=== PATIENT | female | born 1965 | race Caucasian/White ===

== ENCOUNTER 2021-03-05 05:27 | Emergency (ER) | payer OTHER ==
[2021-03-05 05:38] VITALS: RESP 18
--- NOTE | 2021-03-05 06:48 | XR ---
EXAM: XR Chest, 2 Views CLINICAL HISTORY: ITS.REASON XR Reason: COUGH TECHNIQUE: Frontal and lateral views of the chest. COMPARISON: No relevant prior studies available. FINDINGS: Lungs: Patchy peripheral bilateral lung opacities most prominent in the bilateral bases. Pleural space: Unremarkable. No pneumothorax. Heart: Unremarkable. No cardiomegaly. Mediastinum: Unremarkable. Bones/joints: Unremarkable. IMPRESSION: Patchy peripheral bilateral lung opacities consistent with multifocal infection. Correlate with COVID serologies.
[2021-03-05] MEDS ORDERED: ACETAMINOPHEN TAB 325 MG TAB PO STA (07:15)
[2021-03-05] MEDS ORDERED: IBUPROFEN 600 MG TAB PO STA (07:15)
[2021-03-05] MEDS ORDERED: ALBUTEROL HFA INHALER INHALATION STA (07:15)
[2021-03-05] MEDS ORDERED: DEXAMETHASONE SOD PHOSPHATE 10 MG/ML 1 ML VIAL IVP STA (07:15)
[2021-03-05] MEDS ORDERED: SODIUM CHLORIDE 0.9% 50 ML IVPB ONE (08:00)
[2021-03-05] MEDS ORDERED: CASIRIVIMAB (REGN10933) (EUA) 600 MG, IMDEVIMAB (REGN10987) (EUA) 600 MG in SODIUM CHLO... IVPB ONE (08:15)
--- NOTE | 2021-03-05 08:38 | ED ---
General Adult HPI - General Chief complaint: Weakness Stated complaint: SOB Time Seen by Provider: 03/05/21 07:15 Source: patient, RN notes reviewed Mode of arrival: ambulatory - History of Present Illness Initial comments: Patient is a 55-year-old female that presents to the emergency department complaining of generalized weakness for the past several days. She notes that she can emergency room to get evaluated.She notes that her daughter tested positive for Covid on Tuesday. Patient otherwise denied any issues or complaints. She was otherwise well-appearing. She denied chest pain headache nausea vomiting constipation fatigue chills. - Related Data Home Medications Medication Instructions Recorded Confirmed Acetaminophen Tab [Tylenol Tab] 1,000 mg PO Q6HR PRN 03/05/21 03/05/21 Allergies Allergy/AdvReac Type Severity Reaction Status Date / Time No Known Allergies Allergy Verified 03/05/21 08:16 Review of Systems ROS Statement: Those systems with pertinent positive or pertinent negative responses have been documented in the HPI. ROS Other: All systems not noted in ROS Statement are negative. Past Medical History Past Medical History: No Reported History History of Any Multi-Drug Resistant Organisms: None Reported Past Surgical History: Ablation Additional Past Surgical History / Comment(s): Left knee surgery 12 years ago Past Psychological History: No Psychological Hx Reported Smoking Status: Former smoker Past Alcohol Use History: Occasional Past Drug Use History: None Reported General Exam General appearance: alert, in no apparent distress Head exam: Present: atraumatic, normocephalic, normal inspection Eye exam: Present: normal appearance, PERRL, EOMI. Absent: scleral icterus, conjunctival injection, periorbital swelling ENT exam: Present: normal exam, mucous membranes moist Neck exam: Present: normal inspection Respiratory exam: Present: normal lung sounds bilaterally. Absent: respiratory distress, wheezes, rales, rhonchi, stridor Cardiovascular Exam: Present: regular rate, normal rhythm, normal heart sounds. Absent: systolic murmur, diastolic murmur, rubs, gallop, clicks Extremities exam: Present: normal inspection, full ROM, normal capillary refill. Absent: tenderness, pedal edema, joint swelling, calf tenderness Neurological exam: Present: alert, oriented X3 Psychiatric exam: Present: normal affect, normal mood Skin exam: Present: warm, dry, intact, normal color. Absent: rash Course Vital Signs 03/05/21 03/05/21 05:29 07:22 Temperature 99.7 F H Pulse Rate 79 Respiratory 18 Rate Blood Pressure 102/69 O2 Sat by Pulse 90 L 94 L Oximetry Medical Decision Making - Medical Decision Making 55-year-old female here for Covid testing due to symptoms for the past several days. Covid test ordered. Covid test positive. Chest x-ray shows peribronchial thickening consistent with Covid. 600 mg of Motrin, 650 mg Tylenol, 10 mg of Decadron, albuterol inhaler ordered. Patient does meet criteria for monoclonal antibodies. Patient is agreeable discharge home after. Patient oxygen saturation upon ambulation was 94%. Case discussed with Dr. Mariee, patient discharge home. - Lab Data Lab Results 03/05/21 Range/Units 05:40 Coronavirus (PCR) Detected A (Not Detectd) - Radiology Data Radiology results: report reviewed, image reviewed Chest x-ray: Patchy peripheral bilateral lung opacities consistent with multifocal infection. Correlate with Covid's serologies. Disposition Clinical Impression: COVID Disposition: HOME SELF-CARE Condition: Stable Instructions (If sedation given, give patient instructions): Coronavirus Disease 2019 (COVID-19) Additional Instructions: Please return to the Emergency Department if symptoms worsen or any other concerns. Is patient prescribed a controlled substance at d/c from ED?: No Referrals: None,Stated [Primary Care Provider] - 1-2 days Time of Disposition: 08:38
[2021-03-05 09:52] VITALS: BP 110/70; PULSE 62; TEMP 98
== END 2021-03-05 10:06 | disposition home or self-care (01) ==
LOC: EC 05:27
DX: U07.1 COVID-19 (principal); Z87.891 Personal history of nicotine dependence
CPT/HCPCS: 94640; 87635; 71046; 99285; 96374; J1100; Q0244

== ENCOUNTER 2021-03-10 17:45 | Emergency (ER) | payer OTHER ==
[2021-03-10 19:33] VITALS: BP 95/60; PULSE 59; RESP 18; TEMP 97.6
[2021-03-10] MEDS ORDERED: SODIUM CHLORIDE 0.9% 1,000 ML IV STA (20:00)
[2021-03-10] MEDS ORDERED: diphenhydrAMINE 50 MG/ML 1 ML VIAL IVP STA (20:01)
[2021-03-10] MEDS ORDERED: KETOROLAC 15 MG/ML 1 ML VIAL IVP STA (20:01)
[2021-03-10] MEDS ORDERED: METOCLOPRAMIDE 5 MG/ML 2 ML VIAL IVP STA (20:01)
--- NOTE | 2021-03-10 20:53 | XR ---
EXAMINATION TYPE: XR chest 1V portable DATE OF EXAM: 03/10/2021 8:44 PM COMPARISON:Chest radiographs from 03/05/2021. CLINICAL INDICATION:Female, 55 years old with history of covid; TECHNIQUE: Frontal view of the chest. FINDINGS: Lungs/Pleura: Interval worsening of multifocal airspace opacities. No evidence of pneumothorax or ple ural effusion. Pulmonary vascularity: Unremarkable. Heart/mediastinum: Cardiomediastinal silhouette is unremarkable. Musculoskeletal: No acute osseous pathology. IMPRESSION: Interval increase/worsening of multifocal airspace opacities some with COVID pneumonia.
[2021-03-10 21:08] LABS: Basophils % (A) 0 %; Eosinophils # (A) 0.2 k/uL (0-0.7); Eosinophils % (A) 2 %; HCT 44.6 % (34.0-46.0); HGB 15.3 gm/dL (11.4-16.0); Lymphocytes # (A) 1.1 k/uL (1.0-4.8); Lymphocytes % (A) 10 %; MCHC 34.3 g/dL (31.0-37.0); MCV 87.4 fL (80.0-100.0); Mean Platelet Volume 8.5; Monocytes # (A) 0.5 k/uL (0-1.0); Monocytes % (A) 5 %; Neutrophils # (A) 9.1 k/uL (1.3-7.7); Neutrophils % (A) 83 %; Platelet Count 309 k/uL (150-450); RDW 13.8 % (11.5-15.5)
[2021-03-10 21:17] LABS: ALT 44 U/L (4-34); AST 32 U/L (14-36); African American GFR (CKD) >90 (>60 ml/min/1.73 sqM); Albumin 3.1 g/dL (3.5-5.0); Alkaline Phosphatase 70 U/L (38-126); Anion Gap 12 mmol/L; Blood Urea Nitrogen 22 mg/dL (7-17); Calcium 8.3 mg/dL (8.4-10.2); Carbon Dioxide 22 mmol/L (22-30); Chloride 103 mmol/L (98-107); Glucose 127 mg/dL (74-99); Magnesium 2.1 mg/dL (1.6-2.3); Non-African American GFR(CKD) 88 (>60 ml/min/1.73 sqM); Potassium 3.6 mmol/L (3.5-5.1); Sodium 137 mmol/L (137-145); Total Bilirubin 0.9 mg/dL (0.2-1.3); Total Protein 6.1 g/dL (6.3-8.2)
[2021-03-10] MEDS ORDERED: ONDANSETRON 4 MG ODT STARTER PACK 2 TAB BTL PO STA (22:19)
--- NOTE | 2021-03-10 22:28 | ED ---
Weakness HPI - General Chief complaint: Weakness Stated complaint: Covid+,weakness Source: patient Mode of arrival: ambulatory Limitations: no limitations - History of Present Illness Initial comments: Patient is a 55-year-old female with no past smoke a history who presents [facility] with reported fatigue, muscle aches, nausea and vomiting. Patient was seen in our emergency department on the and tested positive for Covid. She states that her symptoms are virtually started on the fourth. She is not vaccinated. On the she did receive an antibody infusion was placed on steroids. Hasn't taken the steroids as directed however states she still remains incredibly nauseated with vomiting. She is able to hold down water but has not ate much solid food. Reports to weight loss and generalized fatigue. Has not had much urinary output. She denies any chest pain or shortness of breath. No other alleviating, precipitating or modifying factors - Related Data Home Medications Medication Instructions Recorded Confirmed Acetaminophen Tab [Tylenol Tab] 1,000 mg PO Q6HR PRN 03/05/21 03/05/21 Previous Rx's Medication Instructions Recorded Dexamethasone [Decadron] 6 mg PO BID 7 Days #14 tablet 03/05/21 Albuterol Inhaler [Ventolin Hfa 2 puff INHALATION RT-QID #8 gm 03/10/21 Inhaler] Ondansetron Odt [Zofran Odt] 4 mg PO Q8HR PRN #10 tab 03/10/21 Allergies Allergy/AdvReac Type Severity Reaction Status Date / Time No Known Allergies Allergy Verified 03/10/21 19:34 Review of Systems ROS Statement: Those systems with pertinent positive or pertinent negative responses have been documented in the HPI. ROS Other: All systems not noted in ROS Statement are negative. Past Medical History Past Medical History: No Reported History History of Any Multi-Drug Resistant Organisms: None Reported Past Surgical History: Ablation Additional Past Surgical History / Comment(s): Left knee surgery 12 years ago Past Psychological History: No Psychological Hx Reported Smoking Status: Former smoker Past Alcohol Use History: Occasional Past Drug Use History: None Reported General Exam Limitations: no limitations Course Vital Signs 03/10/21 19:28 Temperature 97.6 F Pulse Rate 59 L Respiratory 18 Rate Blood Pressure 95/60 O2 Sat by Pulse 91 L Oximetry Medical Decision Making - Medical Decision Making Upon arrival patient is placed into room 33. Thorough history and physical exam is performed. IV is established. Patient was given 10 mg of Reglan, 25 mg of Benadryl and a liter bolus of normal saline. Patient also provided with 15 mg of Toradol. Laboratory studies are conducted. Chest x-ray is performed. Chest x-ray does appear worse than the one completed on the . I did repeat a pu lse ox of the patient she does maintain saturations of 95% without increased work of breathing. He did discuss the diagnosis, differential and treatment options. I did offer admission for fluid hydration and states that she would rather go home at this time. She does have a pulse ox at home. I instructed her that she needs to watch it closely and if she has any ox and saturation to 80 that she needs to return immediately to the emergency department as her chest x-ray does appear to be worsening. Patient understood this. Lives with her daughter and were able to watch her. I did write her for a prescription for Zofran and albuterol inhaler. She needs to see her doctor within 2 days. Return for any new or worsening symptoms per patient was discharged with stable condition - Lab Data Result diagrams: 03/10/21 21:01 03/10/21 21:01 Lab Results 03/10/21 03/10/21 03/10/21 Range/Units 21: 21: 21:01 WBC 11.0 H (3.8-10.6) k/uL RBC 5.10 (3.80-5.40) m/uL Hgb 15.3 (11.4-16.0) gm/dL Hct 44.6 (34.0-46.0) % MCV 87.4 (80.0-100.0) fL MCH 30.0 (25.0-35.0) pg MCHC 34.3 (31.0-37.0) g/dL RDW 13.8 (11.5-15.5) % Plt Count 309 (150-450) k/uL MPV 8.5 Neutrophils % 83 % Lymphocytes % 10 % Monocytes % 5 % Eosinophils % 2 % Basophils % 0 % Neutrophils # 9.1 H (1.3-7.7) k/uL Lymphocytes # 1.1 (1.0-4.8) k/uL Monocytes # 0.5 (0-1.0) k/uL Eosinophils # 0.2 (0-0.7) k/uL Basophils # 0.0 (0-0.2) k/uL Sodium 137 (137-145) mmol/L Potassium 3.6 (3.5-5.1) mmol/L Chloride 103 (98-107) mmol/L Carbon Dioxide 22 (22-30) mmol/L Anion Gap 12 mmol/L BUN 22 H (7-17) mg/dL Creatinine 0.76 (0.52-1.04) mg/dL Est GFR (CKD-EPI)AfAm >90 (>60 ml/min/1.73 sqM) Est GFR (CKD-EPI)NonAf 88 (>60 ml/min/1.73 sqM) Glucose 127 H (74-99) mg/dL Plasma Lactic Acid [place] 1.6 (0.7-2.0) mmol/L Calcium 8.3 L (8.4-10.2) mg/dL Magnesium 2.1 (1.6-2.3) mg/dL Total Bilirubin 0.9 (0.2-1.3) mg/dL AST 32 (14-36) U/L ALT 44 H (4-34) U/L Alkaline Phosphatase 70 (38-126) U/L Total Protein 6.1 L (6.3-8.2) g/dL Albumin 3.1 L (3.5-5.0) g/dL Disposition Clinical Impression: COVID Disposition: HOME SELF-CARE Condition: Fair Instructions (If sedation given, give patient instructions): Coronavirus Disease 2019 (COVID-19) Additional Instructions: Please check your pulse ox at home and if it drops into the 80s, return to the emergency department. Your chest xray looked worse today so it is very important that you check your pulse ox. Take the nausea medications as directed as well as continuing your steroids. Use the inhaler 2 puffs every 4 hours. Please return if you have any new or worsening symptoms Prescriptions: Albuterol Inhaler [Ventolin Hfa Inhaler] 2 puff INHALATION RT-QID #8 gm Ondansetron Odt [Zofran Odt] 4 mg PO Q8HR PRN #10 tab PRN Reason: Nausea Is patient prescribed a controlled substance at d/c from ED?: No Referrals: None,Stated [Primary Care Provider] - 1-2 days Time of Disposition: 22:27
== END 2021-03-10 23:42 | disposition home or self-care (01) ==
LOC: EC 17:45
DX: U07.1 COVID-19 (principal); Z87.891 Personal history of nicotine dependence
CPT/HCPCS: 99284; 96374; 96375 ×2; 36415; 80053; 83605; 83735; 85025; 71045; J1200; J2765; J1885; S0119